=== PATIENT | male | born 1950 | race Caucasian/White ===

== ENCOUNTER 2017-03-18 09:01 | Outpatient (CLI) | payer MEDICARE, OTHER | END 2017-03-18 09:02 | disposition home or self-care (01) | LOC: CP 09:01 | PROVIDERS: ATTEND Internal Medicine Critical Care Medicine | DX: J45.909 Unspecified asthma, uncomplicated (principal); G47.33 Obstructive sleep apnea (adult) (pediatric) | CPT/HCPCS: 94060; 94727; 94729 ==

== ENCOUNTER 2017-03-28 19:30 | Outpatient (CLI) | payer MEDICARE, OTHER | END 2017-03-28 19:31 | disposition home or self-care (01) | LOC: SLEEPLAB 19:30 | PROVIDERS: ATTEND Internal Medicine Critical Care Medicine | DX: G47.33 Obstructive sleep apnea (adult) (pediatric) (principal); R06.81 Apnea, not elsewhere classified; R53.83 Other fatigue; R09.89 Other specified symptoms and signs involving the circulatory and respiratory systems; J45.909 Unspecified asthma, uncomplicated | CPT/HCPCS: 95810 ==

== ENCOUNTER 2017-04-18 19:30 | Outpatient (CLI) | payer MEDICARE, OTHER | END 2017-04-18 19:31 | disposition home or self-care (01) | LOC: SLEEPLAB 19:30 | PROVIDERS: ATTEND Internal Medicine Critical Care Medicine | DX: G47.33 Obstructive sleep apnea (adult) (pediatric) (principal); G47.61 Periodic limb movement disorder | CPT/HCPCS: 95811 ==

== ENCOUNTER 2021-10-11 10:19 | Outpatient (CLI) | payer MEDICARE, OTHER | END 2021-10-11 10:20 | disposition home or self-care (01) | LOC: RAD 10:19 | PROVIDERS: ATTEND Internal Medicine Critical Care Medicine | DX: R06.00 Dyspnea, unspecified (principal) | CPT/HCPCS: 71046 ==

== ENCOUNTER 2022-05-01 11:45 | Outpatient (CLI) | payer MEDICARE, OTHER | END 2022-05-01 11:46 | disposition home or self-care (01) | LOC: RAD 11:45 | PROVIDERS: ATTEND Internal Medicine Critical Care Medicine | DX: R06.00 Dyspnea, unspecified (principal) | CPT/HCPCS: 71046 ==

== ENCOUNTER 2022-11-12 10:40 | Outpatient (CLI) | payer MEDICARE, OTHER | END 2022-11-12 10:41 | disposition home or self-care (01) | LOC: RAD 10:40 | PROVIDERS: ATTEND Internal Medicine Critical Care Medicine | DX: R06.00 Dyspnea, unspecified (principal); J98.4 Other disorders of lung; M47.814 Spondylosis without myelopathy or radiculopathy, thoracic region; R91.8 Other nonspecific abnormal finding of lung field; Z96.612 Presence of left artificial shoulder joint | CPT/HCPCS: 71046 ==

== ENCOUNTER 2022-11-25 12:20 | Outpatient (CLI) | payer MEDICARE, OTHER | END 2022-11-25 12:21 | disposition home or self-care (01) | LOC: RAD 12:20 | PROVIDERS: ATTEND Internal Medicine Critical Care Medicine | DX: R06.00 Dyspnea, unspecified (principal); J45.51 Severe persistent asthma with (acute) exacerbation; J98.11 Atelectasis | CPT/HCPCS: 36415; 71046; 82785; 85025; 86331; 86602; 86606; 86671; 87070; 87205 ==

== ENCOUNTER 2023-02-25 12:37 | Outpatient (CLI) | payer MEDICARE, OTHER | END 2023-02-25 12:38 | disposition home or self-care (01) | LOC: SCSMRI 12:37 | PROVIDERS: ATTEND Nurse Practitioner Family | DX: M51.16 Intervertebral disc disorders with radiculopathy, lumbar region (principal); M47.26 Other spondylosis with radiculopathy, lumbar region; M48.061 Spinal stenosis, lumbar region without neurogenic claudication; M48.05 Spinal stenosis, thoracolumbar region | CPT/HCPCS: 72148 ==